=== PATIENT | female | born 1990 | race African-American/Black ===

== ENCOUNTER 2016-12-08 13:29 | Emergency (ER) | payer SELFPAY ==
[~2016-12-08] VITALS: Ht 160 cm; Wt 82.0 kg
[2016-12-08 13:33] VITALS: BP 125/77; PULSE 94; RESP 16; TEMP 98.6; O2SAT 98
[2016-12-08] MEDS ORDERED: SODIUM CHLOR 0.9% 1000 ML INJ 1,000 ML IV SCH (13:51)
--- NOTE | 2016-12-08 13:51 | PD ---
HPI Chief Complaint: Abdominal Pain Time Seen by Provider: 13:43 Travel History International Travel<30 days: No Contact w/Intl Traveler<30days: No Traveled to known affect area: No History of Present Illness HPI 26-year-old Afro-[place] female coming in with four-day history of left upper quadrant and epigastric tenderness and cramping. Patient states nausea and vomiting in the last 2 days. Patient denies fever, chills, or diarrhea. Patient states today she has had central chest discomfort, and tightness with occasional cramping. Patient states previous history of this twice in the past 2 years, with a diagnosis of diverticulitis 2013 as well as ecchymosis of colitis approximately one year ago in [place] treated with Cipro and Flagyl. Patient denies upper respiratory symptoms. Patient denies urinary symptoms. Patient denies or vaginal symptoms. Patient states her pain is 8-1/2 over 10. Patient states pain does not get worse or better with food. Patient denies significant alcohol use or smoking. Patient denies family history of Crohn's or ulcerative colitis. Patient is allergic to aspirin. PFSH Past Medical History Medical History: Denies Significant Hx ?: Not LMP: 11/25/16 Past Surgical History Surgical History: No Previous Surgery Social History Alcohol Use: Yes (OCCASIONAL) Tobacco Use: No Substance Use: No Allergies-Medications (Allergen,Severity, Reaction): Coded Allergies: Aspirin (Verified Allergy, Intermediate, Numbness, 12/08/16) Reported Meds & Prescriptions Reported Meds & Active Scripts Active Omeprazole 40 Mg Cap 40 Mg PO DAILY Zofran (Ondansetron HCl) 4 Mg Tab 4 Mg PO Q6HR PRN Review of Systems Except as stated in HPI: all other systems reviewed are Neg General / Constitutional: No: Fever, Chills Eyes: No: Visual changes HENT: No: Headaches Cardiovascular: Positive: Chest Pain or Discomfort (see history of present illness) Respiratory: No: Cough, Shortness of Breath, Wheezing Gastrointestinal: Positive: Nausea, Vomiting, Abdominal Pain (see history present illness), No: Diarrhea, Constipation, Indigestion, Dysphagia, Loss of Appetite Genitourinary: No: Urgency, Frequency, Dysuria Musculoskeletal: No: Pain Skin: No Rash Neurologic: No: Weakness Psychiatric: No: Depression Endocrine: No: Polydipsia Hematologic/Lymphatic: No: Easy Bruising Physical Exam Narrative GENERAL: Patient appears in mild distress. SKIN: Warm and dry. Normal color. Normal turgor. HEAD: Atraumatic. Normocephalic. EYES: Pupils equal and round. No scleral icterus. No injection or drainage. ENT: No nasal bleeding or discharge. Mucous membranes pink and moist. Pharynx is normal. Airway is patent. NECK: Trachea midline. No JVD. Neck supple nontender. CARDIOVASCULAR: Regular rate and rhythm. No murmurs gallops or rubs. RESPIRATORY: No accessory muscle use. Clear to auscultation. Breath sounds equal bilaterally. GASTROINTESTINAL: Abdomen soft, moderate diffuse tenderness in the epigastric and left upper quadrant, nondistended. Bowel sounds present in all quadrants. Hepatic and splenic margins not palpable. No CVA tenderness. MUSCULOSKELETAL: Extremities without clubbing, cyanosis, or edema. No obvious deformities. NEUROLOGICAL: Awake and alert. No obvious cranial nerve deficits. Motor grossly within normal limits. Five out of 5 muscle strength in the arms and legs. Normal speech. PSYCHIATRIC: Appropriate mood and affect; insight and judgment normal. Data Data Last Documented VS Vital Signs Date Time Temp Pulse Resp B/P Pulse Ox O2 Delivery O2 Flow Rate FiO2 12/08/16 15:01 15 12/08/16 14:33 99 Room Air 12/08/16 13:33 98.6 94 125/77 Orders Complete Blood Count With Diff (12/08/16 13:51) Comprehensive Metabolic Panel (12/08/16 13:51) Lipase (12/08/16 13:51) Lactic Acid (12/08/16 13:51) Prothrombin Time / Inr (Pt) (12/08/16 13:51) Urinalysis - C+S If Indicated (12/08/16 13:51) Iv Access Insert/Monitor (12/08/16 13:51) Ecg Monitoring (12/08/16 13:51) Oximetry (12/08/16 13:51) NPO (12/08/16 13:51) Morphine Inj (Morphine Inj) (12/08/16 14:00) Ondansetron Inj (Zofran Inj) (12/08/16 14:00) Pantoprazole Inj (Protonix Inj) (12/08/16 14:00) Sodium Chlor 0.9% 1000 Ml Inj (Ns 1000 M (12/08/16 13:51) Sodium Chloride 0.9% Flush (Ns Flush) (12/08/16 14:00) Al-Mag Hy-Si 40-40-4 Mg/Ml Liq (Mag-Al P (12/08/16 14:00) Lidocaine 2% Viscous (Xylocaine 2% Visco (12/08/16 14:00) Ed Urine Pregnancytest Poc (12/08/16 13:51) Ct Abd/Pel W/O Iv Contrast (12/08/16 14:01) Labs Laboratory Tests Test 12/08/16 14:50 White Blood Count 6.3 TH/MM3 Red Blood Count 4.67 MIL/MM3 Hemoglobin 11.1 GM/DL Hematocrit 35.1 % Mean Corpuscular Volume 75.1 FL Mean Corpuscular Hemoglobin 23.8 PG Mean Corpuscular Hemoglobin 31.7 % Concent Red Cell Distribution Width 13.9 % Platelet Count 226 TH/MM3 Mean Platelet Volume 9.8 FL Neutrophils (%) (Auto) 56.6 % Lymphocytes (%) (Auto) 30.2 % Monocytes (%) (Auto) 11.5 % Eosinophils (%) (Auto) 1.0 % Basophils (%) (Auto) 0.7 % Neutrophils # (Auto) 3.6 TH/MM3 Lymphocytes # (Auto) 1.9 TH/MM3 Monocytes # (Auto) 0.7 TH/MM3 Eosinophils # (Auto) 0.1 TH/MM3 Basophils # (Auto) 0.0 TH/MM3 CBC Comment AUTO DIFF Prothrombin Time 10.4 SEC Prothromb Time International 0.9 RATIO Ratio Urine Color YELLOW Urine Turbidity HAZY Urine pH 6.5 Urine Specific [place] 1.020 Urine Protein TRACE mg/dL Urine Glucose (UA) NEG mg/dL Urine Ketones NEG mg/dL Urine Occult Blood NEG Urine Nitrite NEG Urine Bilirubin NEG Urine Urobilinogen LESS THAN 2.0 MG/DL Urine Leukocyte Esterase MOD Urine WBC 3 /hpf Urine Squamous Epithelial 5 /hpf Cells Urine Bacteria RARE /hpf Urine Mucus FEW /lpf Microscopic Urinalysis Comment CULT NOT INDICATED Sodium Level 142 MEQ/L Potassium Level 3.6 MEQ/L Chloride Level 109 MEQ/L Carbon Dioxide Level 26.0 MEQ/L Anion Gap 7 MEQ/L Blood Urea Nitrogen 10 MG/DL Creatinine 1.01 MG/DL Estimat Glomerular Filtration 80 ML/MIN Rate Random Glucose 87 MG/DL Lactic Acid Level 1.2 mmol/L Calcium Level 8.8 MG/DL Total Bilirubin 0.6 MG/DL Aspartate Amino Transf 11 U/L (AST/SGOT) Alanine Aminotransferase 19 U/L (ALT/SGPT) Alkaline Phosphatase 66 U/L Total Protein 7.4 GM/DL Albumin 3.8 GM/DL Lipase 93 U/L MDM Medical Decision Making Medical Screen Exam Complete: Yes Emergency Medical Condition: Yes Differential Diagnosis Gastritis. Esophageal spasm. Diverticulitis. Colitis. Urine tract infection. Pancreatitis. Narrative Course Patient is medically stable at time of exam. Labs are ordered including CBC, CMP, lactic acid, lipase, PT PTT and urinalysis. Urine as well. Patient is made nothing by mouth. IV access is obtained patient was given 2 mg morphine IV as well as 4 mg of acetaminophen IV as well as pantoprazole 40 mg IV. Patient is given GI cocktail by mouth. Patient is given IV bolus of 1000 mL was normal saline. Abdominal CT ordered. 1530 hrs. the patient is reevaluated after the above treatment, and the patient feels improved. She states her abdominal pain is gone. CT scan shows a right ovarian cyst otherwise no acute findings per radiologist. Labs and urinalysis are currently within normal limits. Patient is discharged home with omeprazole 40 mg daily 30 days. Patient also given Zofran 4 mg every 6 hours when necessary nausea #12. Diet instructions are given to the patient. Patient follow with her primary care physician or return to emergency Department with worsening symptoms if necessary. Diagnosis Primary Impression: Gastritis Qualified Code: K29.00 - Acute gastritis without hemorrhage, unspecified gastritis type Additional Impressions: Esophagitis GERD (gastroesophageal reflux disease) Qualified Code: K21.9 - Gastroesophageal reflux disease, esophagitis presence not specified Referrals: Primary Care Physician Patient Instructions: Diet for Stomach Ulcers and Gastritis (ED), Gastritis (ED ), General Instructions Additional Instructions: CT scan shows a right ovarian cyst otherwise no acute findings per radiologist. Labs and urinalysis are currently within normal limits. Patient is discharged home with omeprazole 40 mg daily 30 days. Patient also given Zofran 4 mg every 6 hours when necessary nausea #12. Diet instructions are given to the patient. Patient follow with her primary care physician or return to emergency Department with worsening symptoms if necessary. Med/Other Pt SpecificInfo: Prescription(s) given Scripts Omeprazole 40 Mg Cap40 Mg PO DAILY #30 CAP Prov:Sandra Domínguez MD 12/08/16 Ondansetron (Zofran)4 Mg Tab4 Mg PO Q6HR PRN (NAUSEA OR VOMITING) #12 TAB Prov:Sandra Domínguez MD 12/08/16 Disposition: 01 DISCHARGE HOME Condition: Stable dEward Bullock Dec 08, 2016 13:51
[2016-12-08] MEDS ORDERED: ONDANSETRON HCL 4 MG/2 ML VIAL IVP ONE (14:00)
[2016-12-08] MEDS ORDERED: PANTOPRAZOLE SODIUM 40 MG VIAL IVP ONE (14:00)
[2016-12-08] MEDS ORDERED: LIDOCAINE VISCOUS 2% SOLN 15 ML UDC PO ONE (14:00)
[2016-12-08] MEDS ORDERED: MORPHINE SULFATE 4 MG/ML INJ IV PUSH ONE (14:00)
[2016-12-08] MEDS ORDERED: ALUMINUM/MAGNESIUM/SIMETH 30 ML CUP PO ONE (14:00)
[2016-12-08] MEDS ORDERED: SODIUM CHLORIDE 0.9% FLUSH 5 ML FLUSH IVF PRN (14:00)
[2016-12-08 14:33] VITALS: RESP 16; O2SAT 99
[2016-12-08 15:01] VITALS: RESP 15
[2016-12-08 15:16] LABS: AUTOMATED NEUTROPHIL # 3.6 TH/MM3 (1.8-7.7); BASOPHIL % 0.7 % (0.0-2.0); EOSINOPHIL # 0.1 TH/MM3 (0-0.4); HEMATOCRIT 35.1 % (35.0-46.0); LYMPH % 30.2 % (9.0-44.0); LYMPHOCYTE # 1.9 TH/MM3 (1.0-4.8); MEAN CELL VOLUME 75.1 FL (80.0-100.0); MEAN CORPUSCULAR HEMOGLOBIN 23.8 PG (27.0-34.0); MEAN CORPUSCULAR HGB CONC 31.7 % (32.0-36.0); MONO % 11.5 % (0.0-8.0); NEUT % 56.6 % (16.0-70.0); PLATELET COUNT 226 TH/MM3 (150-450); RED BLOOD COUNT 4.67 MIL/MM3 (4.00-5.30); RED CELL DISTRIBUTION WIDTH 13.9 % (11.6-17.2); WHITE BLOOD COUNT 6.3 TH/MM3 (4.0-11.0)
[2016-12-08 15:22] LABS: BACTERIA, URINE RARE /hpf; BLOOD, URINE NEG (NEG); COMMENT (UR) CULT NOT INDICATED; CULTURE IF INDICATED CULT NOT INDICATED; GLUCOSE,URINE NEG (NEG); KETONE, URINE NEG (NEG); MUCUS URINE FEW /lpf (OCC); NITRITE,URINE NEG (NEG); PH, URINE 6.5 (5.0-8.5); SQUAMOUS EPITHELIAL CELL URINE 5 /hpf (0-5); URINE COLOR YELLOW (YELLW/STRAW)
--- NOTE | 2016-12-08 15:27 | RADRPT ---
EXAM DATE/TIME: 12/08/2016 15:15 [facility] COMPARISON: No previous studies available for comparison. INDICATIONS : LUQ abdominal and epigastric pain with cramping. ORAL CONTRAST: No oral contrast ingested. RADIATION DOSE: 12.61 CTDIvol (mGy) MEDICAL HISTORY : None SURGICAL HISTORY : None. ENCOUNTER: Initial ACUITY: 1 day PAIN SCALE: 7/10 LOCATION: Left upper quadrant Abdomen/pelvis TECHNIQUE: Volumetric scanning of the abdomen and pelvis was performed. Using automated exposure control and ad justment of the mA and/or kV according to patient size, radiation dose was kept as low as reasonably achievable to obtain optimal diagnostic quality images. FINDINGS: LOWER LUNGS: The visualized lower lungs are clear. LIVER: Homogeneous density without lesion. There is no dilation of the biliary tree. No calcified gallston es. SPLEEN: Normal size without lesion. PANCREAS: Within normal limits. KIDNEYS: Normal in size and shape. There is no mass, stone, or hydronephrosis. ADRENAL GLANDS: Within normal limits. VASCULAR: There is no aortic aneurysm. BOWEL/MESENTERY: Uncomplicated colonic diverticulosis is noted. There is no acute diverticulitis. The appendix is norm al. ABDOMINAL WALL: Within normal limits. RETROPERITONEUM: There is no lymphadenopathy. BLADDER: No wall thickening or mass. REPRODUCTIVE: There is a 2.7 cm cystic right ovarian lesion likely representing follicular cyst. INGUINAL: There is no lymphadenopathy or hernia. MUSCULOSKELETAL: Mild scoliosis of the thoracolumbar spine. CONCLUSION: 1. No acute intra-abdominal process. 2. Uncomplicated colonic diverticulosis. 3. 2.7 cm right ovarian, probable follicular, cyst. 4. Mild scoliosis of the thoracolumbar spine. 1. Med Meléndez MD on December 08, 2016 at 15:21 Board Certified Radiologist. This report was verified electronically.
[2016-12-08 15:28] LABS: INTERNATIONAL NORMALIZED RATIO 0.9 RATIO; PROTHROMBIN TIME - PATIENT 10.4 SEC (9.8-11.6)
--- NOTE | 2016-12-08 15:30 | PD ---
Data Data Last Documented VS Vital Signs Date Time Temp Pulse Resp B/P Pulse Ox O2 Delivery O2 Flow Rate FiO2 12/08/16 15:01 15 12/08/16 14:33 99 Room Air 12/08/16 13:33 98.6 94 125/77 Orders Complete Blood Count With Diff (12/08/16 13:51) Comprehensive Metabolic Panel (12/08/16 13:51) Lipase (12/08/16 13:51) Lactic Acid (12/08/16 13:51) Prothrombin Time / Inr (Pt) (12/08/16 13:51) Urinalysis - C+S If Indicated (12/08/16 13:51) Iv Access Insert/Monitor (12/08/16 13:51) Ecg Monitoring (12/08/16 13:51) Oximetry (12/08/16 13:51) NPO (12/08/16 13:51) Morphine Inj (Morphine Inj) (12/08/16 14:00) Ondansetron Inj (Zofran Inj) (12/08/16 14:00) Pantoprazole Inj (Protonix Inj) (12/08/16 14:00) Sodium Chlor 0.9% 1000 Ml Inj (Ns 1000 M (12/08/16 13:51) Sodium Chloride 0.9% Flush (Ns Flush) (12/08/16 14:00) Al-Mag Hy-Si 40-40-4 Mg/Ml Liq (Mag-Al P (12/08/16 14:00) Lidocaine 2% Viscous (Xylocaine 2% Visco (12/08/16 14:00) Ed Urine Pregnancytest Poc (12/08/16 13:51) Ct Abd/Pel W/O Iv Contrast (12/08/16 14:01) Labs Laboratory Tests Test 12/08/16 14:50 Prothrombin Time 10.4 SEC Prothromb Time International 0.9 RATIO Ratio Urine Color YELLOW Urine Turbidity HAZY Urine pH 6.5 Urine Specific [place] 1.020 Urine Protein TRACE mg/dL Urine Glucose (UA) NEG mg/dL Urine Ketones NEG mg/dL Urine Occult Blood NEG Urine Nitrite NEG Urine Bilirubin NEG Urine Urobilinogen LESS THAN 2.0 MG/DL Urine Leukocyte Esterase MOD Urine WBC 3 /hpf Urine Squamous Epithelial 5 /hpf Cells Urine Bacteria RARE /hpf Urine Mucus FEW /lpf Microscopic Urinalysis Comment CULT NOT INDICATED MDM Supervised Visit with JAGJIT: Yes Narrative Course I, Dr. Domínguez, have reviewed the advance practice practioner's documentation and am in agreement, met with the patient face to face, made the diagnosis, and the medical decision making was done by me. *My assessment and Findings: 26-year-old female here with 4 days of left upper quadrant abdominal pain radiating the epigastric , nausea, vomiting. Mild epigastric tenderness to palpation without rebound or guarding. Patient states that she had a history of diverticulitis 2 years ago and this feels somewhat similar. Really little low abdominal tenderness to palpation though she rates her pain at an 8 out of 10. I strong suspicion is for gastritis versus pancreatitis versus peptic ulcer disease and less likely hepatobiliary pathology , diverticulitis, colitis.we'll obtain labs, imaging for hopeful disposition to home. Scripts No Active Prescriptions or Reported Meds Sandra Domínguez MD Dec 08, 2016 15:30
[2016-12-08 15:35] LABS: HEMO FLAGS AUTO DIFF
[2016-12-08] MEDS ORDERED: OMEP40CA2 PO (15:35)
[2016-12-08] MEDS ORDERED: ZOFR4TAB PO (15:35)
[2016-12-08 15:43] LABS: ANION GAP 7 MEQ/L (5-15); AST (GOT) 11 U/L (15-37); BLOOD UREA NITROGEN 10 MG/DL (7-18); CHLORIDE 109 MEQ/L (98-107); GLOMERULAR FILTRATION RATE 80 ML/MIN (>89); POTASSIUM 3.6 MEQ/L (3.5-5.1); SODIUM (NA) 142 MEQ/L (136-145)
[2016-12-08 15:46] LABS: ALKALINE PHOSPHATASE 66 U/L (45-117); ALT (GPT) 19 U/L (10-53); TOTAL BILIRUBIN ADULT 0.6 MG/DL (0.2-1.0)
[2016-12-08 17:18] LABS: OVALOCYTES 1+ (NORMAL); SCAN/DIFF AUTO DIFF CONFIRMED
== END 2016-12-08 16:59 | disposition home or self-care (01) ==
LOC: NEPE 13:29
DX: K29.00 Acute gastritis without bleeding (principal); K21.9 Gastro-esophageal reflux disease without esophagitis
CPT/HCPCS: 74176; 80053; 81001; 83605; 83690; 84703; 85025; 85610; 96361; 96374; 96375; 99284; C9113; J2270; J2405; J7030